=== PATIENT | female | born 1995 | race Caucasian/White ===

== ENCOUNTER 2024-01-11 21:44 | Emergency (ER) | payer SELFPAY ==
[2024-01-11 21:46] VITALS: BP 109/70
[2024-01-11 22:10] LABS: COVID-19 Antigen Negative (Negative)
--- NOTE | 2024-01-11 23:11 | ED.GENMED ---
History of Present Illness
General
Chief Complaint: Cough
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
Exam Limitations: none
Time Seen by Provider: 01/11/24 23:01
Nursing documentation reviewed up to this point in time: agreed with
History of Present Illness
History of Present Illness:
Patient to ED with complaint of cough. States 8 days ago she developed fever, BERKOWITZ, cough, nosebleeds. Cough remains. To ED with family for eval.
Past History
Past History
ED Past Medical History: None
ED Past Surgical History: Orthopedic
Social History
Tobacco: Non-smoker
Alcohol: None
Review of Systems
Review of Systems
Allergies reviewed?: Yes
All Other Systems: ROS reviewed and negative except as documented in HPI and ROS
Constitutional: Reports fever and fatigue
EENT: Reports no symptoms
Respiratory: Reports cough
Cardiac: Reports no symptoms
ABD/GI: Reports no symptoms
: Reports no symptoms
Musculoskeletal: Reports no symptoms
Skin: Reports no symptoms
Neurological: Reports no symptoms
Psychiatric: Reports no symptoms
Phy Exam
General Physical Exam
General Presentation: well appearing and no apparent distress
General age: appears stated age
General Skin: warm and dry
General Habitus: normal
General Mental: alert
Cardiovascular Exam
Cardiovascular Exam: regular rate/rhythm and no edema
Pulmonary Exam
Pulmonary Exam: no respiratory distress and chest non tender
Cough: non productive cough
Breath Sounds: Wheeze: left lower and right lower
Musculoskeletal Exam
Musculoskeletal Exam: full ROM and neuro vasc intact
Skin Exam
Skin Exam: normal color, warm/dry and no rash
Psychiatric Exam
Psychiatric Exam: normal mood/affect
Course
Orders/Labs/Results
Orders:
Orders
01/11/24 21:52
COVID-19 Antigen Stat
Source: Nasal Swab
Comment: covid
01/11/24 23:10
Dexamethasone Pf [Decadron] 10 mg PO NOW STA
CR Chest - 2 Views Urgent
Comment:
Reason For Exam: cough
01/11/24 23:11
Ipratropium/Albuterol Sulfate [Duoneb] 3 ml INH R NOW STA
01/11/24 23:58
Complete Blood Count/With Diff Urgent
Comprehensive Metabolic Panel Urgent
Lactic Acid Urgent
Influenza A+B Rapid Molecular Urgent
BATOOL Source: Nasal Swab
Specimen Description:
01/12/24 00:45
Amoxicillin [Amoxil] 500 mg PO NOW STA
Azithromycin [Zithromax] 500 mg PO NOW STA
Abnormal Lab Results
01/11/24
23:58
RBC 3.83 L 10^6/uL
(4.20-5.40)
Hgb 11.9 L g/dL
(12.0-16.0)
Hct 34.0 L %
(37.0-47.0)
MCH 31.1 H pg
(27.0-31.0)
Abs Immat Gran (auto) 0.2 H 10^3/uL
(0-0.05)
Absolute Neuts (auto) 6.6 H 10^3/uL
(1.4-6.5)
Absolute Monos (auto) 1.2 H 10^3/uL
(0.1-0.6)
Immature Gran % 1.7 H %
(0-0.5)
Lymphocytes % 14.7 L %
(20.5-51.1)
Monocytes % 12.8 H %
(1.7-9.3)
Glucose 117 H mg/dl
(70-99)
AST 41 H U/L
(14-36)
Albumin 3.3 L g/dl
(3.5-5.0)
01/11/24 23:58
01/11/24 23:58
Vital Signs
Initial and Last Documented VS:
Initial Vital Signs
Temp Pulse Resp BP Pulse Ox
100.1 F 92 20 109/70 94
01/11/24 21:46 01/11/24 21:46 01/11/24 21:46 01/11/24 21:46 01/11/24 21:46
Last Documented Vital Signs
Temp Pulse Resp BP Pulse Ox
100.1 F 96 18 138/89 96
01/11/24 21:46 01/12/24 00:14 01/12/24 00:14 01/12/24 00:14 01/12/24 00:15
*Radiology
Radiology exam reviewed: radiology read reviewed
*Pulse Oximetry
Patient hypoxic: no
*Critical Care Note
Total Time (30-74mins, 75-104mins- exclusive of procedures): Not Applicable
Update Note
Update Note:
Discussed lab and xray results with her using language line. Amoxicillin and zithromax started in dept. she remains awake and alert, nontoxic appearing. PUlse ox 96%RA. WIll discharge home, follow up with clinic in 1-2 days. Given instructions
on s/s to return to ED and she is agreeable to plan.
ED Attending Note
-
Portions of this chart may have been created with voice recognition software.� Occasional wrong word or��sound alike� substitutions may have occurred due to the inherent limitations of voice recognition software.
Discharge Plan
Departure
Patient Disposition: Home (Routine Discharge)
Date of Disposition: 01/12/24
Time of Disposition: 00:46
Patient with high blood pressure during this ER visit?: No
Condition: Good
Covid-19: Not Applicable
Discharge Problem:
Pneumonia
Instructions: Pneumonia, Adult (DC)
Prescriptions:
New
amoxicillin 500 mg capsule
500 mg PO Q8H Qty: 30 0RF
azithromycin [Zithromax] 250 mg tablet
250 mg PO DAILY Qty: 4 0RF
albuterol sulfate [Proventil HFA] 90 mcg/actuation HFA aerosol inhaler
2 puff inhalation Q4H PRN (Reason: shortness of breath or wheezing) Qty: 8.5 0RF
Referrals:
[facility] [Outside] - Call in 1-3 days for appt
UNKNOWN - PT DOES,NOT KNOW [Family Provider] -
Stand Alone Forms: Return to Work
Activity Restrictions/Additional Instructions:
Return to the emergency department immediately for any changes in/worsening of your symptoms
Interventions
Interventions:
*Risk Screen - Suicide Last Done: 01/12/24 00:16
*General Assessment Last Done: 01/12/24 00:16
*Neglect/Abuse Screening Last Done: 01/12/24 00:16
*Nursing Disposition Last Done: 01/12/24 01:25
ED- Pulmonary Assessment Last Done: 01/12/24 00:15
Discharge Date and Time
Print Language: GERMAN
[2024-01-11] MEDS: DECADRON 10 MG PO (23:52)
[2024-01-11] MEDS: DUONEB 3 ML INH (23:59)
[2024-01-12 00:14] VITALS: BP 138/89
[2024-01-12 00:26] LABS: Lactic Acid 0.8 mmol/L (0.7-2.0)
[2024-01-12 00:38] LABS: % Basophils 0.2 % (0-2); % Eosinophils 0.7 % (0-6); % Immature Granulocytes 1.7 % (0-0.5); % Lymphocytes 14.7 % (20.5-51.1); % Monocytes 12.8 % (1.7-9.3); % Neutrophils 69.9 % (42.2-75.2); Absolute Eosinophils 0.1 10^3/uL (0-0.7); Absolute Immature Granulocytes 0.2 10^3/uL (0-0.05); Absolute Lymphocytes 1.4 10^3/uL (1.2-3.4); Absolute Monocytes 1.2 10^3/uL (0.1-0.6); Absolute Neutrophils 6.6 10^3/uL (1.4-6.5); Hemoglobin 11.9 g/dL (12.0-16.0); Mean Corpuscular Hgb 31.1 pg (27.0-31.0); Mean Corpuscular Volume 88.8 fL (81.0-99.0); Mean Platelet Volume 9.5 fL (7.4-10.4); Nucleated Red Blood Cells % 0 %; Platelet Count 245 10^3/uL (130-400); Red Blood Cell Count 3.83 10^6/uL (4.20-5.40); Red Cell Dist. Width 12.4 % (11.5-14.5); White Blood Cell Count 9.4 10^3/uL (4.8-10.8)
[2024-01-12 00:48] LABS: ALT (SGPT) 31 U/L (0-35); AST (SGOT) 41 U/L (14-36); Albumin 3.3 g/dl (3.5-5.0); Alkaline Phosphatase 83 U/L (38-126); Blood Urea Nitrogen 11 mg/dl (7-17); Calcium 8.5 mg/dl (8.4-10.2); Carbon Dioxide 27 mmol/L (22-30); Chloride 102 mmol/L (98-107); Glucose 117 mg/dl (70-99); Potassium 4.3 mmol/L (3.5-5.1); Sodium 138 mmol/L (135-145); Total Bilirubin 0.4 mg/dl (0.2-1.3); Total Protein 6.4 g/dl (6.3-8.2); eGFR > 60.00
[2024-01-12] MEDS: ZITHROMAX 500 MG PO (01:18)
[2024-01-12] MEDS: AMOXIL 500 MG PO (01:19)
== END 2024-01-12 01:25 | disposition home or self-care (01) ==
LOC: EMR 21:44
PROVIDERS: Emergency Medicine; Nurse Practitioner; EMERGENCY PHYSICIAN Emergency Medicine
DX: J18.9 Pneumonia, unspecified organism (principal)
CPT/HCPCS: 99283; 94640; 71046; 80053; 83605; 85025; 87502; 87811